=== PATIENT | male | born 1955 | race Two or more races ===

== ENCOUNTER 2019-12-02 11:32 | Outpatient (CLI) | payer OTHER | END 2019-12-02 11:42 | disposition home or self-care (01) | LOC: TOM 11:32 | PROVIDERS: ATTEND Urology | DX: K57.30 Diverticulosis of large intestine without perforation or abscess without bleeding (principal); K80.80 Other cholelithiasis without obstruction; Q61.00 Congenital renal cyst, unspecified; N40.1 Benign prostatic hyperplasia with lower urinary tract symptoms; F52.21 Male erectile disorder ==

== ENCOUNTER 2020-11-10 09:44 | Outpatient (CLI) | payer OTHER | END 2020-11-10 09:59 | disposition home or self-care (01) | LOC: SONOGRAMA 09:44 | PROVIDERS: ATTEND Urology | DX: K80.80 Other cholelithiasis without obstruction (principal); R10.13 Epigastric pain ==

== ENCOUNTER 2023-01-02 10:14 | Outpatient (CLI) | payer OTHER | END 2023-01-02 10:21 | disposition home or self-care (01) | LOC: SONOGRAMA 10:14 | PROVIDERS: ATTEND Urology | DX: N28.1 Cyst of kidney, acquired (principal) ==

== ENCOUNTER 2023-01-19 08:28 | Outpatient (CLI) | payer OTHER | END 2023-01-19 08:41 | disposition home or self-care (01) | LOC: TOM 08:28 | DX: Z12.11 Encounter for screening for malignant neoplasm of colon (principal); G47.30 Sleep apnea, unspecified ==

== ENCOUNTER 2024-12-13 09:56 | Outpatient (CLI) | payer OTHER | END 2024-12-13 10:00 | disposition home or self-care (01) | LOC: SONOGRAMA 09:56 | PROVIDERS: ATTEND Urology | DX: N28.1 Cyst of kidney, acquired (principal); N40.1 Benign prostatic hyperplasia with lower urinary tract symptoms ==